=== PATIENT | male | born 1985 | race African-American/Black ===

== ENCOUNTER 2020-12-10 17:42 | Emergency (ER) | payer SELFPAY ==
[2020-12-10] MEDS ORDERED: diphenhydrAMINE 50 MG/ML VIAL ONE (18:53)
[2020-12-10] MEDS ORDERED: Metoclopramide HCl 10 MG/2 ML VIAL ONE (18:53)
[2020-12-10] MEDS ORDERED: Acetaminophen 500 MG TAB ONE (18:54)
[2020-12-10 19:19] LABS: #Eosinphils 0.3 10x3/uL (0.0-0.5); #Monocytes 0.8 10x3/uL (0.0-1.1); %Basophils 0.6 % (0.0-2.0); %Eosinophils 3.5 % (0.0-6.0); %Lymphocytes 43.1 % (18.0-47.0); %Monocytes 11.1 % (0.0-10.0); %Neutrophils 41.3 % (40.0-75.0); ALT (SGPT) 20 U/L (8-55); AST (SGOT) 23 U/L (5-34); Albumin 4.1 g/dL (3.5-5.0); Alkaline Phosphatase 58 U/L (40-110); Anion Gap 17 mmol/L (10-20); BUN (Urea Nitrogen) 23 mg/dL (8.9-20.6); Bilirubin, Total 0.8 mg/dL (0.2-1.2); CK (CPK) 295 U/L (30-200); Calc. Creatinine Clearance 0 mL/min (70-130); Calcium 8.9 mg/dL (7.8-10.44); Carbon Dioxide 24 mmol/L (22-29); Chloride 105 mmol/L (98-107); Glucose 60 mg/dL (70-105); Hemoglobin 12.9 g/dL (13.5-17.5); Mean Corpuscular HGB CONC 31.4 g/dL (32.0-36.0); Mean Corpuscular Hemoglobin 23.9 pg (27.0-33.0); Mean Corpuscular Volume 76.3 fl (81.2-95.1); Mean Platelet Volume 10.7 fl (7.4-10.4); Platelet Count 275 10x3/uL (150-450); Potassium 4.4 mmol/L (3.5-5.1); Protein, Total 7.1 g/dL (6.0-8.3); RBC Distribution Width 13.2 % (11.5-14.5); Red Blood Cell (RBC) Count 5.39 10x6/uL (4.32-5.72); Sodium 142 mmol/L (136-145); White Blood Cell (WBC) Count 7.2 10x3/uL (3.5-10.5)
== END 2020-12-10 21:23 | disposition home or self-care (01) ==
LOC: CSHERS 17:42
DX: G43.109 Migraine with aura, not intractable, without status migrainosus (principal); D17.0 Benign lipomatous neoplasm of skin and subcutaneous tissue of head, face and neck
CPT/HCPCS: 70496; 70498; 71275; 74174; 80053; 82550; 84484; 85025; 93005; 96374; 96375; J1200; J2765